=== PATIENT | female | born 1955 | race Two or more races ===

== ENCOUNTER 2020-07-27 14:12 | Emergency (ER) | payer OTHER ==
[~2020-07-27] VITALS: Ht 165.1 cm; Wt 63.5 kg
[2020-07-27] MEDS ORDERED: DICLOFENAC SODI75 MG PO (17:18)
== END 2020-07-27 17:21 | disposition home or self-care (01) ==
LOC: ER 14:12
DX: S93.491A Sprain of other ligament of right ankle, initial encounter (principal); S33.5XXA Sprain of ligaments of lumbar spine, initial encounter; S70.02XA Contusion of left hip, initial encounter; W52.XXXA Crushed, pushed or stepped on by crowd or human stampede, initial encounter; Y93.89 Activity, other specified; Y92.59 Other trade areas as the place of occurrence of the external cause; Y99.8 Other external cause status

== ENCOUNTER → 2021-03-03 | Emergency (ER) | payer OTHER ==
[~2021-03-03] VITALS: Ht 165.1 cm; Wt 72.6 kg
[~2021-03-03] MED LIST: BACTRIM DS TAB1 EACH PO; DICLOFENAC SODI75 MG PO; KETO10TA2 PO; TAMS0.4C PO
== END | disposition home or self-care (01) ==
LOC: ER 14:59
DX: N20.2 Calculus of kidney with calculus of ureter (principal); N39.0 Urinary tract infection, site not specified; R31.0 Gross hematuria